=== PATIENT | female | born 1970 | race African-American/Black ===

== ENCOUNTER 2016-11-14 05:25 | Day surgery (SDC) | payer OTHER ==
[~2016-11-14] VITALS: Ht 170.2 cm; Wt 69.4 kg
[~2016-11-14 05:25] MED LIST: MOTRIN400 MG PO; NAPROXEN500 MG PO
[2016-11-14 06:41] VITALS: BP 108/68
[2016-11-14] MEDS ORDERED: MOTRIN800 MG PO (07:29)
[2016-11-14] MEDS ORDERED: PERCOCET 5/31 TABLET PO (07:29)
[2016-11-14 10:50] VITALS: BP 107/53
[2016-11-14 11:43] VITALS: BP 113/61
== END 2016-11-14 12:00 | disposition home or self-care (01) ==
LOC: SDC 05:25
DX: N93.8 Other specified abnormal uterine and vaginal bleeding (principal); N92.0 Excessive and frequent menstruation with regular cycle; N80.0 Endometriosis of uterus; D25.1 Intramural leiomyoma of uterus; N83.202 Unspecified ovarian cyst, left side; N85.4 Malposition of uterus; F32.9 Major depressive disorder, single episode, unspecified; Z82.49 Family history of ischemic heart disease and other diseases of the circulatory system; Z82.3 Family history of stroke; F17.200 Nicotine dependence, unspecified, uncomplicated; Z91.018 Allergy to other foods
CPT/HCPCS: 88307; J0131; J0330; J0690; J1100; J1170; J1885; J2175; J2405; J3010; S0020